=== PATIENT | female | born 1990 | race Hispanic/Latino ===

== ENCOUNTER 2024-04-10 19:34 | Emergency (ER) | payer OTHER ==
[~2024-04-10] VITALS: Ht 160 cm; Wt 88.1 kg
[2024-04-10 21:46] VITALS: BP 137/82; TEMP 98.3; O2SAT 99
== END 2024-04-10 21:47 | disposition home or self-care (01) ==
LOC: M ED 19:34
DX: S83.92XA Sprain of unspecified site of left knee, initial encounter (principal); Y92.9 Unspecified place or not applicable; Y93.9 Activity, unspecified; Y99.9 Unspecified external cause status